=== PATIENT | female | born 1945 | race Caucasian/White ===

== ENCOUNTER 2020-10-20 04:18 | Day surgery (SDC) | payer OTHER, MEDICARE ==
[2020-10-19 12:11] VITALS: BMI 36.6
[~2020-10-20 04:18] MED LIST: LIDOCAINE 1%/EPI 1:100000 (50 ML MULTI DOSE VIAL) NR ONE
[2020-10-20] MEDS ORDERED: oxyCODONE HCL 5 MG TABLET PO ONE (11:00)
[2020-10-20] MEDS ORDERED: ALPRAZolam 1 MG TABLET PO ONE (11:00)
[2020-10-20] MEDS ORDERED: ACETAMINOPHEN 325 MG TABLET (FP) PO ONE (11:00)
[2020-10-20] MEDS ORDERED: LIDOCAINE HCL 2% (20ML MULTI-DOSE VIAL) ONE (12:36)
[2020-10-20] MEDS ORDERED: PROPOFOL 20 ML ONE (12:36)
[2020-10-20] MEDS ORDERED: EPINEPHrine/PF 1 MG/1 ML (1:1,000) AMPULE ONE (12:36)
[2020-10-20] MEDS ORDERED: ceFAZolin SODIUM 1 GM VIAL ONE (12:36)
[2020-10-20] MEDS ORDERED: MIDAZOLAM HCL 2 MG/2 ML SINGLE DOSE VIAL ONE (12:36)
[2020-10-20] MEDS ORDERED: BUPIVACAINE HCL/PF 0.25% (2.5MG/ML) 10 ML VIAL ONE (12:36)
[2020-10-20] MEDS ORDERED: EPINEPHrine/PF 1 MG/1 ML (1:1,000) AMPULE SQ ONE ×2 (13:00)
[2020-10-20] MEDS ORDERED: BUPIVACAINE HCL/PF 0.25% (2.5MG/ML) 10 ML VIAL IJ ONE ×2 (13:00)
[2020-10-20] MEDS ORDERED: ceFAZolin SODIUM 1 GM VIAL IVPB ONE (13:00)
[2020-10-20] MEDS ORDERED: LIDOCAINE HCL 2% (50ML VIAL) NR ONE ×2 (13:00)
[2020-10-20] MEDS ORDERED: NYSTATIN 100,000 UNIT/GM TOPICAL CREAM 15 GM TUBE TP ONE ×2 (13:40→14:00)
[2020-10-20] MEDS ORDERED: ONDANSETRON 4 MG/2 ML VIAL IVPUSH PRN (14:17)
[2020-10-20] MEDS ORDERED: LACTATED RINGERS SOLUTION 1,000 ML IV SCH (14:30)
[2020-10-20] MEDS ORDERED: oxyCODONE HCL 5 MG TABLET ONE (15:07)
[2020-10-20] MEDS ORDERED: ACETAMINOPHEN 325 MG TABLET (FP) ONE (15:07)
[2020-10-20 15:22] VITALS: TEMP 97.8
[2020-10-20 16:07] VITALS: BP 149/63; PULSE 87
== END 2020-10-20 16:00 | disposition home or self-care (01) ==
LOC: JASU-SURG 04:18
PROVIDERS: ATTEND Plastic Surgery
PROC: 0HBQXZZ Excision of Finger Nail, External Approach (ICD-10-PCS; 2020-10-20)
PROC: 0JBJ0ZZ Excision of Right Hand Subcutaneous Tissue and Fascia, Open Approach (ICD-10-PCS; principal; 2020-10-20 13:30)
DX: C49.11 Malignant neoplasm of connective and soft tissue of right upper limb, including shoulder (principal); I10 Essential (primary) hypertension; E11.9 Type 2 diabetes mellitus without complications; E66.01 Morbid (severe) obesity due to excess calories
CPT/HCPCS: 82962; 87102; 87210; 88304-TC; 88305-TC; 88312-TC; 88331-TC; 94760

== ENCOUNTER 2020-11-05 04:14 | Day surgery (SDC) | payer OTHER, MEDICARE ==
[2020-11-05 13:10] VITALS: BMI 36.6
[2020-11-05] MEDS ORDERED: PROPOFOL 20 ML ONE (14:44)
[2020-11-05] MEDS ORDERED: MIDAZOLAM HCL 2 MG/2 ML SINGLE DOSE VIAL ONE (14:44)
[2020-11-05] MEDS ORDERED: BUPIVACAINE HCL/PF 0.25% (2.5MG/ML) 10 ML VIAL ONE (14:44)
[2020-11-05] MEDS ORDERED: LIDOCAINE 1%/EPI 1:100000 (50 ML MULTI DOSE VIAL) ONE (14:44)
[2020-11-05] MEDS ORDERED: LIDOCAINE HCL/PF 2% SDV 5ML VIAL ONE (14:44)
[2020-11-05] MEDS ORDERED: ceFAZolin SODIUM 1 GM VIAL ONE (15:04)
[2020-11-05] MEDS ORDERED: ceFAZolin SODIUM 1 GM VIAL IVPB ONE (15:06)
[2020-11-05] MEDS ORDERED: BUPIVACAINE HCL 0.25% 125 MG/50 ML VIAL NR ONE (15:12)
[2020-11-05] MEDS ORDERED: LIDOCAINE 1%/EPI 1:100000 (20 ML MULTI DOSE VIAL) PNB ONE (15:12)
[2020-11-05] MEDS ORDERED: BACITRACIN 15 GM TUBE TOPICAL OINTMENT ONE (15:47)
[2020-11-05 17:33] VITALS: PULSE 77
[2020-11-05 17:55] VITALS: BP 162/74; TEMP 97.8
== END 2020-11-05 17:56 | disposition home or self-care (01) ==
LOC: JASU-SURG 04:14
PROVIDERS: ATTEND Plastic Surgery
PROC: 0JBJ0ZZ Excision of Right Hand Subcutaneous Tissue and Fascia, Open Approach (ICD-10-PCS; 2020-11-05)
PROC: 0PBR0ZZ Excision of Right Thumb Phalanx, Open Approach (ICD-10-PCS; 2020-11-05)
PROC: 0JXJ0ZB Transfer Right Hand Subcutaneous Tissue and Fascia with Skin and Subcutaneous Tissue, Open Approach (ICD-10-PCS; principal; 2020-11-05 15:00)
DX: C76.41 Malignant neoplasm of right upper limb (principal); I10 Essential (primary) hypertension; E11.9 Type 2 diabetes mellitus without complications
CPT/HCPCS: 73130-TC-RT-FY; 82962; 94760

== ENCOUNTER 2021-12-07 18:27 | Inpatient (IN) | payer OTHER, MEDICARE ==
[2021-12-07 20:40] LABS: BASO % 0.9 % (0-2.0); EOS % 1.4 % (0-4.5); HEMATOCRIT 39.5 % (32.4-45.2); HEMOGLOBIN 13.2 GM/dL (10.7-15.3); MCH 32.4 pg (25.7-33.7); MCHC 33.5 g/dl (32.0-36.0); MEAN CELL VOLUME 96.7 fl (80-96); MONO % 4.6 % (3.8-10.2); NEUT % 86.1 % (42.8-82.8); PLATELET COUNT 257 10^3/uL (134-434); RBC 4.08 M/mm3 (3.60-5.2); RDW 13.4 % (11.6-15.6); WHITE BLOOD COUNT 8.7 K/mm3 (4.0-10.0)
[2021-12-07 20:44] LABS: INR 1.09 (0.83-1.09); PROTHROMBIN TIME (PATIENT) 12.5 SEC (9.7-13.0)
[2021-12-07 20:46] LABS: CALCIUM 9.7 mg/dL (8.5-10.1)
[2021-12-07 20:47] LABS: ACTIVATED PTT 28.6 SECONDS (25.2-36.5); BLOOD UREA NITROGEN 20.8 mg/dL (7-18)
[2021-12-07 20:50] LABS: CREATININE 1.1 mg/dL (0.55-1.3)
[2021-12-07 20:51] LABS: TOT PROT 7.8 g/dl (6.4-8.2)
[2021-12-07 20:52] LABS: BILIRUBIN,TOTAL 0.4 mg/dL (0.2-1)
[2021-12-07] MEDS: metFORMIN HCL 500 MG TABLET (FP) PO SCH (23:27)
[2021-12-08 01:25] VITALS: BMI 32.3
[2021-12-08] MEDS: metFORMIN HCL 500 MG TABLET (FP) PO SCH ×2 (06:28→18:01)
[2021-12-08 09:18] LABS: BASO % 0.4 % (0-2.0); HEMOGLOBIN 12.4 GM/dL (10.7-15.3); LYMPH % 11.1 % (8-40); MCH 32.3 pg (25.7-33.7); MCHC 33.6 g/dl (32.0-36.0); MEAN CELL VOLUME 96.1 fl (80-96); MEAN PLT VOLUME 6.6 fl (7.5-11.1); MONO % 7.5 % (3.8-10.2); PLATELET COUNT 237 10^3/uL (134-434); RBC 3.85 M/mm3 (3.60-5.2); RDW 12.9 % (11.6-15.6)
[2021-12-08 09:24] LABS: INR 1.12 (0.83-1.09); PROTHROMBIN TIME (PATIENT) 12.9 SEC (9.7-13.0)
[2021-12-08] MEDS: LOSARTAN POTASSIUM 50 MG TABLET PO SCH (09:39)
[2021-12-08] MEDS: ENOXAPARIN NA (PORCINE) 100 MG/1 ML DISP.SYRIN SQ SCH ×2 (09:39→21:39)
[2021-12-08] MEDS: ASPIRIN 81 MG CHEWABLE TABLETS PO SCH (09:39)
[2021-12-08] MEDS: CHOLECALCIFEROL (VIT D3) 400 UNIT (10 MCG) TABLET PO SCH (09:39)
[2021-12-08 09:44] LABS: ALBUMIN 3.6 g/dl (3.4-5.0); CALCIUM 9.2 mg/dL (8.5-10.1)
[2021-12-08 09:45] LABS: BLOOD UREA NITROGEN 17.5 mg/dL (7-18); MAGNESIUM 1.7 mg/dL (1.8-2.4)
[2021-12-08 09:48] LABS: CREATININE 0.9 mg/dL (0.55-1.3); PHOSPHOROUS 3.6 mg/dL (2.5-4.9)
[2021-12-08 09:49] LABS: BILIRUBIN,TOTAL 0.5 mg/dL (0.2-1); TOT PROT 6.9 g/dl (6.4-8.2)
[2021-12-08] MEDS ORDERED: ENOXAPARIN NA (PORCINE) 40 MG/0.4 ML DISP.SYRIN SQ SCH (10:00)
[2021-12-08 18:09] LABS: EPI CELLS 10 /uL (0-25.1); HYALINE CASTS 0 /uL (0-3.1); PH,URINE 5.5 (5.0-8.0); URINE APPEARANCE CLOUDY; URINE BACTERIA >9,000 /uL (0-1359); URINE BILIRUBIN NEGATIVE (NEGATIVE); URINE COLOR YELLOW; URINE GLUCOSE (UA) NEGATIVE (NEGATIVE); URINE KETONE NEGATIVE (NEGATIVE); URINE LEUK ESTERASE 3+ (NEGATIVE); URINE NITRITE POSITIVE (NEGATIVE); URINE PROTEIN 1+ (NEGATIVE); URINE RBC 17 /uL (0-23.9); URINE UROBILINOGEN 0.2 mg/dL (0.2-1.0); URINE WBC 1551 /uL (0-25.8)
[2021-12-08] MEDS ORDERED: MAGNESIUM OXIDE 400 MG TABLET (FP) PO ONE (19:41)
[2021-12-08] MEDS: INSULIN SLIDING SCALE (NOVOLOG) 1 VIAL SQ SCH (21:38)
[2021-12-08] MEDS ORDERED: ATORVASTATIN CA 20 MG TABLET (FP) PO SCH (22:00)
[2021-12-09] MEDS: metFORMIN HCL 500 MG TABLET (FP) PO SCH (06:42)
[2021-12-09] MEDS: INSULIN SLIDING SCALE (NOVOLOG) 1 VIAL SQ SCH ×2 (06:42→11:38)
[2021-12-09 09:46] LABS: BASO % 0.5 % (0-2.0); EOS % 2.3 % (0-4.5); HEMOGLOBIN 12.7 GM/dL (10.7-15.3); MCH 32.3 pg (25.7-33.7); MCHC 33.4 g/dl (32.0-36.0); MEAN CELL VOLUME 96.6 fl (80-96); MONO % 6.7 % (3.8-10.2); NEUT % 79.5 % (42.8-82.8); PLATELET COUNT 269 10^3/uL (134-434); RBC 3.93 M/mm3 (3.60-5.2); WHITE BLOOD COUNT 5.9 K/mm3 (4.0-10.0)
[2021-12-09 09:57] LABS: CALCIUM 9.4 mg/dL (8.5-10.1)
[2021-12-09 09:58] LABS: BLOOD UREA NITROGEN 17.4 mg/dL (7-18); MAGNESIUM 1.9 mg/dL (1.8-2.4)
[2021-12-09] MEDS ORDERED: APIXABAN 5 MG TABLET PO SCH (10:00)
[2021-12-09 10:01] LABS: CREATININE 0.9 mg/dL (0.55-1.3)
[2021-12-09] MEDS: LOSARTAN POTASSIUM 50 MG TABLET PO SCH (11:34)
[2021-12-09] MEDS: CHOLECALCIFEROL (VIT D3) 400 UNIT (10 MCG) TABLET PO SCH (11:34)
[2021-12-09] MEDS: ASPIRIN 81 MG CHEWABLE TABLETS PO SCH (11:34)
[2021-12-09 13:49] VITALS: BP 137/73; PULSE 94; TEMP 98.4
== END 2021-12-09 14:04 | disposition home or self-care (01) | DRG 301 ==
LOC: JER 18:27 → JERBED 20:00 → J8W 23:04
PROVIDERS: ADMIT Internal Medicine; ATTEND Internal Medicine
DX: I82.411 Acute embolism and thrombosis of right femoral vein (principal); I82.431 Acute embolism and thrombosis of right popliteal vein; I82.441 Acute embolism and thrombosis of right tibial vein; E11.9 Type 2 diabetes mellitus without complications; I10 Essential (primary) hypertension; E78.5 Hyperlipidemia, unspecified; Z85.42 Personal history of malignant neoplasm of other parts of uterus; E66.9 Obesity, unspecified; Z68.32 Body mass index [BMI] 32.0-32.9, adult; Z79.84 Long term (current) use of oral hypoglycemic drugs
CPT/HCPCS: 36415; 71045-TC-FY; 73610-TC-RT-FY; 73630-TC-RT-FY; 80048; 80053; 81003; 82962; 83036; 83735; 84100; 84443; 85025; 85610; 85730; 93005; 93010; 93971-TC; 97116-GP; 97161-GP; 99285-25; C9803-CS; U0003; U0005